=== PATIENT | male | born 1975 | race Asian ===

== ENCOUNTER 2021-07-25 06:25 | Emergency (ER) | payer OTHER ==
[2021-07-25 07:12] VITALS: BP 142/85; PULSE 70; TEMP 97; BMI 23.5
[2021-07-25] MEDS ORDERED: OXYMETAZOLINE 0.05% NASAL SOLUTION 15 ML BOTTLE NS ONE (09:13)
== END 2021-07-25 09:53 | disposition home or self-care (01) ==
LOC: JER 06:25
DX: R04.0 Epistaxis (principal)
CPT/HCPCS: 99281-25